=== PATIENT | female | born 1965 | race Caucasian/White ===

== ENCOUNTER 2017-06-13 07:52 | Day surgery (SDC) | payer OTHER ==
[2017-06-13] MEDS ORDERED: Lactated Ringers 1,000 ML IV SCH ×2 (08:30→10:45)
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
[2017-06-13] MEDS ORDERED: Ondansetron 4 MG/2 ML SDV ONE (08:46)
[2017-06-13] MEDS ORDERED: fentaNYL 100 MCG/2 ML SDV ONE (08:47)
[2017-06-13] MEDS ORDERED: Propofol 200 MG/20 ML SDV ONE (08:47)
[2017-06-13] MEDS ORDERED: Midazolam 1 MG/ML 2 ML SDV ONE (08:47)
--- NOTE | 2017-06-13 10:43 | PCM.OPNOTE ---
- General Post-Op/Procedure Note Date of Surgery/Procedure: 06/13/17 Operative Procedure(s): Colonoscopy Pre Op Diagnosis: Intermittent rectal bleeding Post-Op Diagnosis: Internal hemorrhoids Anesthesia Technique: MAC (ASA II) Primary Surgeon: Vitaly White Condition: Good Free Text/Narrative:: Dictation [id number] CPT CODE 47680
--- NOTE | 2017-06-13 11:18 | OR ---
SURGEON: Vitaly White M.D. DATE OF PROCEDURE: 06/13/2017 OPERATION PERFORMED: Colonoscopy. ANESTHESIA: MAC. ASA CLASSIFICATION: II. PREOPERATIVE DIAGNOSIS: Intermittent rectal bleeding. POSTOPERATIVE DIAGNOSIS: Internal hemorrhoids. DESCRIPTION OF PROCEDURE: The patient was taken to the endoscopy room, positioned on the endoscopy table in the left lateral decubitus position. Time-out was called for appropriate identification of the patient and procedure. Monitored anesthesia care was provided. The colonoscope was inserted into the rectum and advanced without difficulty to the cecum where the colonoscope was retroflexed to visualize the ascending colon from below. The colonoscope was then straightened and slowly withdrawn. The cecum, ascending colon, hepatic flexure, transverse colon, splenic flexure, descending colon, sigmoid colon, and rectum were very well visualized. No tumors, polyps, diverticula, or angiodysplastic changes were noted anywhere in the colon. Once the colonoscope was withdrawn to the rectum, it was retroflexed to visualize the anal orifice from above. No tumors or polyps were noted. The patient does have internal hemorrhoids. No active bleeding was noted. The colonoscope was then straightened, the rectum aspirated, and the colonoscope removed. The patient tolerated the procedure well and was taken to recovery room in stable condition. GABRIELA / SUSHANT /[id number]
== END 2017-06-13 11:15 | disposition home or self-care (01) ==
LOC: MW.SDS 07:52
PROVIDERS: ATTEND Surgery
DX: K64.8 Other hemorrhoids (principal); M19.90 Unspecified osteoarthritis, unspecified site; G43.909 Migraine, unspecified, not intractable, without status migrainosus; F17.210 Nicotine dependence, cigarettes, uncomplicated; E66.9 Obesity, unspecified; Z88.0 Allergy status to penicillin; Z88.5 Allergy status to narcotic agent; Z88.6 Allergy status to analgesic agent; Z88.8 Allergy status to other drugs, medicaments and biological substances; Z91.040 Latex allergy status; Z91.048 Other nonmedicinal substance allergy status; Z79.899 Other long term (current) drug therapy; Z98.51 Tubal ligation status; Z89.511 Acquired absence of right leg below knee; Z90.49 Acquired absence of other specified parts of digestive tract; Z98.890 Other specified postprocedural states; Z68.39 Body mass index [BMI] 39.0-39.9, adult
CPT/HCPCS: 45378; 81025; J2250; J3010; J7120; 00810; J2405; J2704

== ENCOUNTER 2017-10-10 08:36 | Day surgery (SDC) | payer OTHER ==
[~2017-10-10 08:36] MED LIST: Lactated Ringers 1,000 ML IV SCH; Sodium Chloride 0.9% 10 ML Syringe FLUSH PRN; Sodium Chloride 0.9% 2.5 ML Syringe FLUSH PRN
[2017-10-10] MEDS ORDERED: Propofol 200 MG/20 ML SDV ONE (08:55)
[2017-10-10] MEDS ORDERED: Midazolam 1 MG/ML 2 ML SDV ONE (08:55)
[2017-10-10] MEDS ORDERED: fentaNYL 100 MCG/2 ML SDV ONE ×2 (08:55→11:14)
[2017-10-10] MEDS ORDERED: Lidocaine 2% 5 ML SDV ONE (08:55)
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
[2017-10-10] MEDS ORDERED: fentaNYL 100 MCG/2 ML SDV IVPUSH PRN (10:11)
[2017-10-10] MEDS ORDERED: Lactated Ringers 1,000 ML IV SCH (12:30)
[2017-10-10] MEDS ORDERED: Acetaminophen 1,000 MG in Premix Bag 1 BAG IV ONE (12:32)
--- NOTE | 2017-10-10 15:45 | PCM.OPNOTE ---
- General Post-Op/Procedure Note Date of Surgery/Procedure: 10/10/17 Operative Procedure(s): Hysteroscopy, polypectomy, Dilatation and curettage and Mirena IUD insertion Findings: Anterior wall endometrial polyps. Fuffly endometrium Pre Op Diagnosis: Abnormal bleeding. Possible Endometrial polyp. Benign endometrial hyperplasia Post-Op Diagnosis: Abnormal bleeding. Endometrial polyp. Benign endometrial hyperplasia Anesthesia Technique: General ET Tube Primary Surgeon: Vidhya Felder Pathology: Endometrial polyp and curettings Fluid Replacement, Intraop: 1,000 EBL in mLs: 10 Complications: None Condition: Good Free Text/Narrative:: Intake & Output 10/10/17 10/10/17 10/10/17 06:59 14:59 22:59 Intake Total 1100 Output Total 30 Balance 1070
--- NOTE | 2017-10-11 00:52 | OR ---
SURGEON: Vidhya Felder MD DATE OF PROCEDURE: 10/10/2017 PREOPERATIVE DIAGNOSES: 1. Abnormal uterine bleeding. 2. Probable endometrial polyp. 3. Benign endometrial hyperplasia. POSTOPERATIVE DIAGNOSES: 1. Abnormal uterine bleeding. 2. Endometrial polyps. 3. Benign endometrial hyperplasia. ANESTHESIA: General endotracheal. ESTIMATED BLOOD LOSS: 10 mL. COMPLICATIONS: None. DISPOSITION: Stable to recovery room. PATHOLOGY: Endometrial polyps and endometrial curettings. FINDINGS: Mobile anteverted uterus, sounded to 9 cm. No cervical lesions, adhesions, or masses palpable. Hysteroscopic findings revealed anterior wall multiple tiny polyps. Endometrium was rather fluffy in appearance. Both fallopian tube ostia were visualized. BRIEF HISTORY: The patient is a 52-year-old lady who was evaluated in the office for prolonged abnormal uterine bleeding, office pelvic sonogram showed a thickened endometrial lining with a probable polyp noted and Pipelle endometrial biopsy was consistent with benign endometrial hyperplasia. The patient opted to proceed with Mirena for management of the benign endometrial hyperplasia, but due to the thickened endometrial lining with the area suggestive of a polyp, I recommended that we go ahead with a diagnostic hysteroscopy with a polypectomy followed by the insertion of the Mirena IUD. She accepted to proceed after the risk of the procedure were discussed with her extensively. Appropriate consent was obtained. DESCRIPTION OF PROCEDURE: The patient was taken to the operating room. She underwent induction of general anesthesia without difficulty. After adequate level of anesthesia, she was placed in dorsal lithotomy position, prepped and draped in the usual sterile fashion for vaginal procedure. The bladder was emptied. Time out was held. Examination under anesthesia revealed the aforementioned findings. A weighted speculum was placed into the vagina, and the anterior lip of the cervix was grasped with a single- tooth tenaculum. The uterine cavity was sounded to a depth of 9 cm. ECC was performed and the sample was collected with a Cytobrush. The cervical os was then serially dilated up to a #7 Hegar dilator and a 6.5 mm MyoSure operative hysteroscope was inserted into the uterine cavity under direct visualization using normal saline as a distention media. Upon entering the uterine cavity, the above-mentioned pathology was noted. The outflow channel of the MyoSure device was then removed under direct visualization and the MyoSure tissue retrieval device was placed into the uterine cavity via the outflow channel.The retrieval device was then aligned along the anterior wall polyps and the device was activated using the foot pedal, the polyps were resected easily and completely by sweeping the device sideways along their surface. The polyps were removed entirely. Survey of the uterine cavity post the resection revealed no uterine wall injury. The MyoSure tissue retrieval was removed along with the MyoSure. Gentle endometrial curettage was then performed. Once this was completed, the Mirena IUD was prepped and inserted into the uterine cavity without difficulties. All instruments were then removed from the vagina, and area on the cervix where the tenaculum was applied was found to have good hemostasis. All sponge, instrument counts were correct. Input and output of the normal saline was recorded by the MyoSure fluid management system. A deficit of 450 mL was recorded. The patient was taken to the recovery room in stable condition. JOSE J / SUSHANT /[id number]
== END 2017-10-10 13:25 | disposition home or self-care (01) ==
LOC: MW.SDS 08:36
PROVIDERS: ATTEND Obstetrics & Gynecology
DX: N84.0 Polyp of corpus uteri (principal); N93.9 Abnormal uterine and vaginal bleeding, unspecified; K76.0 Fatty (change of) liver, not elsewhere classified; M32.9 Systemic lupus erythematosus, unspecified; G43.909 Migraine, unspecified, not intractable, without status migrainosus; E89.0 Postprocedural hypothyroidism; F17.210 Nicotine dependence, cigarettes, uncomplicated; N32.81 Overactive bladder; L23.0 Allergic contact dermatitis due to metals; E66.9 Obesity, unspecified; Z68.35 Body mass index [BMI] 35.0-35.9, adult; Z88.0 Allergy status to penicillin; Z88.5 Allergy status to narcotic agent; Z88.8 Allergy status to other drugs, medicaments and biological substances; Z91.040 Latex allergy status; Z79.3 Long term (current) use of hormonal contraceptives; Z79.899 Other long term (current) drug therapy; Z98.51 Tubal ligation status; Z89.511 Acquired absence of right leg below knee; Z90.49 Acquired absence of other specified parts of digestive tract; Z98.890 Other specified postprocedural states
CPT/HCPCS: 36415; 58300; 58558; 84703; 85027; 86850; 86900; 86901; J2250; J3010; J7120; 00952; 88305; J2704

== ENCOUNTER 2018-01-03 22:05 | Emergency (ER) | payer OTHER ==
[2018-01-03] MEDS ORDERED: Sodium Chloride 0.9% 10 ML Syringe FLUSH PRN (22:23)
[2018-01-03] MEDS ORDERED: Sodium Chloride 0.9% 2.5 ML Syringe FLUSH PRN (22:23)
[2018-01-03] MEDS ORDERED: Ketorolac 30 MG/ML SDV IVPUSH ONE (22:24)
[2018-01-03] MEDS ORDERED: Sodium Chloride 0.9% 1,000 ML IV ONE (22:24)
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
[2018-01-03 23:19] LABS: CHLORIDE,CL 101 mmol/L (98-107); SODIUM,NA 135 mmol/L (136-145)
[2018-01-03] MEDS ORDERED: cefTRIAXone 1 GM in Premix Bag 1 BAG IV ONE (23:43)
[2018-01-04] MEDS ORDERED: cefTRIAXone 1,000 MG in Dextrose 5% in Water 50 ML IV ONE ×2 (00:15)
== END 2018-01-04 00:47 | disposition home or self-care (01) ==
LOC: MW.ED 22:05
DX: N12 Tubulo-interstitial nephritis, not specified as acute or chronic (principal); N39.0 Urinary tract infection, site not specified; Z79.82 Long term (current) use of aspirin; Z79.899 Other long term (current) drug therapy; Z88.1 Allergy status to other antibiotic agents; Z91.040 Latex allergy status; Z88.5 Allergy status to narcotic agent; Z88.8 Allergy status to other drugs, medicaments and biological substances; Z91.09 Other allergy status, other than to drugs and biological substances
CPT/HCPCS: 36415; 51798; 80053; 81001; 83605; 85025; 87040; 87088; 96361; 96365; 96375; 99284; J0696; J1885; J7040; J7060; 87086

== ENCOUNTER 2019-08-27 18:17 | Emergency (ER) | payer BC, OTHER ==
[2019-08-27] MEDS ORDERED: Ketorolac 30 MG/ML SDV IVPUSH ONE (18:48)
[2019-08-27] MEDS ORDERED: diphenhydrAMINE 50 MG/ML SDV IVPUSH ONE (18:48)
[2019-08-27] MEDS ORDERED: Metoclopramide 10 MG/2 ML SDV IV ONE (18:48)
[2019-08-27] MEDS ORDERED: Sodium Chloride 0.9% 1,000 ML IV ONE (18:48)
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
== END 2019-08-27 20:25 | disposition home or self-care (01) ==
LOC: MW.ED 18:17
DX: R51 Headache (principal); E66.9 Obesity, unspecified; Z68.38 Body mass index [BMI] 38.0-38.9, adult; Z88.8 Allergy status to other drugs, medicaments and biological substances; Z88.5 Allergy status to narcotic agent; Z88.1 Allergy status to other antibiotic agents; Z91.040 Latex allergy status; Z91.048 Other nonmedicinal substance allergy status; Z79.82 Long term (current) use of aspirin; Z79.899 Other long term (current) drug therapy
CPT/HCPCS: 96361; 96374; 96375; 99284; J1200; J1885; J2765; J7030; 99283

== ENCOUNTER 2022-02-18 14:51 | Emergency (ER) | payer SELFPAY | END 2022-02-18 16:48 | disposition home or self-care (01) | LOC: MW.ED 14:51 | DX: S89.92XA Unspecified injury of left lower leg, initial encounter (principal); R47.89 Other speech disturbances; E66.9 Obesity, unspecified; Z88.0 Allergy status to penicillin; Z68.38 Body mass index [BMI] 38.0-38.9, adult; Z91.048 Other nonmedicinal substance allergy status; Z88.5 Allergy status to narcotic agent; Z88.8 Allergy status to other drugs, medicaments and biological substances; Z91.040 Latex allergy status; Z79.82 Long term (current) use of aspirin; Y04.0XXA Assault by unarmed brawl or fight, initial encounter | CPT/HCPCS: 99283 ==